=== PATIENT | female | born 1970 | race Caucasian/White ===

== ENCOUNTER 2020-12-26 14:15 | Day surgery (SDC) | payer OTHER ==
[2020-12-23 09:50] VITALS: BMI 48.6
[2020-12-26 18:34] VITALS: BP 130/74; PULSE 67; TEMP 97.2
== END 2020-12-26 17:35 | disposition home or self-care (01) ==
LOC: JASU-SURG 14:15
PROVIDERS: ATTEND Urology
PROC: 0TF4XZZ Fragmentation in Left Kidney Pelvis, External Approach (ICD-10-PCS; principal; 2020-12-26 16:00)
DX: N20.0 Calculus of kidney (principal)